=== PATIENT | male | born 1985 | race Caucasian/White ===

== ENCOUNTER 2017-06-13 06:30 | Emergency (ER) | payer SELFPAY ==
[~2017-06-13] VITALS: Ht 170.2 cm; Wt 98.1 kg
--- NOTE | 2017-06-13 06:30 | NUR ---
32 Y/O M MARIAM ACCOMPANIED BY [facility] W/C/O SOB X THIS AM. PER EMS PT WAS IN PREBOOKING PROCESS AT [facility] FOR DIU AND HE SUNDENTLY STARTED C/O SOB. PER EMS VSS ON ROUTE. MED HX HTN.
[2017-06-13 06:33] VITALS: BP 129/87
[2017-06-13] MEDS ORDERED: ALBUTEROL SULFATE/IPRATROPIU 3 ML SOL IH ONE (06:40)
[2017-06-13] MEDS ORDERED: MULTIVITAMIN-12 10 ML, THIAMINE 100 MG, MAGNESIUM SULFATE 50% 2,000 MG, FOLIC ACID 5 MG... IV ONE ×5 (06:45)
[2017-06-13] MEDS ORDERED: FOLIC ACID 5 MG/ML SYR ONE (06:54)
[2017-06-13] MEDS ORDERED: THIAMINE 200 MG/2 ML VIAL ONE (06:54)
[2017-06-13] MEDS ORDERED: MAGNESIUM SULFATE 50% 1000 MG/2 ML VIAL IV ONE (06:54)
[2017-06-13] MEDS ORDERED: MULTIVITAMIN-12 10 ML VIAL IV ONE (06:54)
[2017-06-13 07:04] LABS: HEMATOCRIT 47.6 % (36-52); MEAN CORPUSCULAR HEMOGLOBIN 29 pg (27-31); MEAN CORPUSCULAR HGB CONC 34 g/dL (33-37); MEAN CORPUSCULAR VOLUME 86 fL (80-94); PLATELET COUNT (AUTO) 240 K/uL (140-450); RED BLOOD CELL COUNT(AUTO) 5.53 MIL/uL (4.20-6.10); RED CELL DISTRIBUTION WIDTH 13.2 % (11.6-13.7); WHITE BLOOD COUNT (AUTO) 6.2 K/uL (4.8-10.8)
--- NOTE | 2017-06-13 07:19 | NUR ---
Pt report given to ZENA BEE. Transfer of care at this time.
--- NOTE | 2017-06-13 07:20 | NUR ---
OBTAINED REPORT FROM PM NURSE, PT IS AAOX4, LYING ON BED, NO S/S OF DISTRESS, DENIES PAIN, VSS.
[2017-06-13 07:21] LABS: ANION GAP 16.9 (8-16); CARBON DIOXIDE 23.9 mmol/L (21-32); CHLORIDE 110 mmol/L (98-107); CREATININE 0.7 mg/dL (0.7-1.3); GFR ARICAN-AMERICAN 167 mL/min (>90); GLUCOSE 102 mg/dL (74-106); POTASSIUM 3.8 mmol/L (3.5-5.1); SODIUM SERUM 147 mmol/L (136-145); UREA NITROGEN, BLOOD 6 mg/dL (7-18)
[2017-06-13 07:27] LABS: ACETAMINOPHEN < 0.5 ug/ml (10-30); ASPARTATE AMINOTRANSFERASE 18 U/L (15-37); SALICYLATE < 2.8 mg/dL (2.8-20.0); TOTAL BILIRUBIN 0.2 mg/dL (0.0-1.0)
[2017-06-13 07:40] LABS: PROTHROMBIN TIME 10.4 secs (10.8-13.4)
[2017-06-13 07:56] LABS: EOSINOPHILS % (MANUAL) 2 % (0-4); LYMPHOCYTES % (MANUAL) 30 % (20-46); MONOCYTES % (MANUAL) 8 % (5-12)
--- NOTE | 2017-06-13 08:20 | NUR ---
NO S/S OF DISTRESS, VSS. RUNNING IV MEDICATION AT THIS TIME.
[2017-06-13 08:51] LABS: BARBITURATE, URINE NEG. ng/ml (NEG <=200); BENZODIAZEPINE, URINE NEG. ng/mL (NEG <=200); CANNABINOID, URINE NEG. ng/mL (NEG <=50); COCAINE, URINE NEG. ng/mL (NEG <=300); OPIATE, URINE NEG. ng/mL (NEG <=2000); PHENCYCLIDINE SCREEN,URINE NEG. ng/mL (NEG <=25)
[2017-06-13 09:30] VITALS: BP 130/72
--- NOTE | 2017-06-13 09:30 | NUR ---
Patient discharged with v/s stable. Written and verbal after care instructions given and explained. Patient verbalized understanding. Ambulatory with steady gait. All questions addressed prior to discharge. Advised to follow up with PMD.
== END 2017-06-13 09:30 ==
LOC: MED 06:30
DX: F10.129 Alcohol abuse with intoxication, unspecified (principal); I10 Essential (primary) hypertension; F17.210 Nicotine dependence, cigarettes, uncomplicated; Y90.9 Presence of alcohol in blood, level not specified
CPT/HCPCS: 36415; 71045; 80053; 80305; 84484; 85025; 85610; 85730; 94640; 96365; 96366; 99285; A9153; G0480; G0482; J3411; J3475; J3490; J7030; J7620; 93005

== ENCOUNTER 2022-10-03 23:15 | Emergency (ER) | payer SELFPAY ==
[~2022-10-03] VITALS: Ht 167.6 cm; Wt 99.8 kg
--- NOTE | 2022-10-03 23:20 | NUR ---
Dr. Araya examining patient.
[2022-10-03 23:25] VITALS: BP 111/67; PULSE 90; RESP 15; TEMP 98.3; O2SAT 95
--- NOTE | 2022-10-03 23:26 | NUR ---
PT [facility] BLS. TAKEN TO BED 7
--- NOTE | 2022-10-03 23:40 | NUR ---
37 Y/O M BIBA FROM HOME WITH C/O NOSE PAIN, S/P MECHANICAL FALL +ETOH WITH SMALL LAC TO UPPER BRIDGE OF NOSE AND ABRASION TO FACE. PT APPEARS INTOXICATED. PT IS A&OX4. PMH-HTN NKA
--- NOTE | 2022-10-04 00:27 | NUR ---
CLEANED PT. WOUNDS WITH NS. DISOCVERED LAC. UNDER NOSE, NOTIFIED DR. DEL CID. CLEANED LAC. W/ IODINE.
[2022-10-04] MEDS ORDERED: LIDOCAINE MPF 1% 10 MG/ML VIAL INJ ONE (00:30)
--- NOTE | 2022-10-04 00:30 | NUR ---
PT UNABLE TO SIGN TDAAP CONSENT DUE TO INTOXICATION. DR. DEL CID NOTIFIED.
--- NOTE | 2022-10-04 02:30 | NUR ---
PT CONTINUES TO REST IN BED, APPEARS INTOXICATED AND UNABLE TO SIGN CONSENT FOR TDAAP. DR. DEL CID NOTIFIED
[2022-10-04 03:15] VITALS: O2SAT 95
--- NOTE | 2022-10-04 04:07 | NUR ---
Dr. Araya examining patient.
[2022-10-04] MEDS ORDERED: NACL 0.9% 1,000 ML IV ONE (04:15)
--- NOTE | 2022-10-04 06:36 | NUR ---
PT AWAKE AND ALERT. ABLE TO SIGN CONSENT FOR TDAAP.
--- NOTE | 2022-10-04 06:44 | NUR ---
PT AMBULATED TO RESTROOM WITHOUT ASSISTANCE
--- NOTE | 2022-10-04 07:19 | NUR ---
Pt report given to MICHELLE PAGE. Transfer of care at this time.
--- NOTE | 2022-10-04 07:20 | NUR ---
REPORT RECEIVED FROM GINGER PAGE. ASSUMED CARE AT THIS TIME
--- NOTE | 2022-10-04 07:35 | NUR ---
pt at rest w/ eyes closed. respirations even and unlabored. on lunchroom monitor.
[2022-10-04 08:04] VITALS: BP 120/74; PULSE 94; RESP 16; TEMP 98.3; O2SAT 97
--- NOTE | 2022-10-04 08:05 | NUR ---
IV removed, catheter intact and site benign. Applied folded 4x4 gauze and tape to stop bleeding.
--- NOTE | 2022-10-04 09:00 | NUR ---
Patient discharged with v/s stable. Written and verbal after care instructions FOR ALCOHOL INTOXICATION, HEADINJURY, NASAL FRACTURE AND LAC CARE given and explained. Patient verbalized understanding. Ambulatory with steady gait. All questions addressed prior to discharge. Advised to follow up with PMD. [facility] HOME PROVIDED
--- NOTE | 2022-10-04 09:07 | NUR ---
The patient's care was reviewed and supervised by ED Agency Nurse 9, RN, RN.
== END 2022-10-04 09:07 | disposition home or self-care (01) ==
LOC: MED 23:15
DX: S02.2XXA Fracture of nasal bones, initial encounter for closed fracture (principal); F10.129 Alcohol abuse with intoxication, unspecified; E86.0 Dehydration; Z79.899 Other long term (current) drug therapy; Y90.9 Presence of alcohol in blood, level not specified; W18.30XA Fall on same level, unspecified, initial encounter; Y93.89 Activity, other specified; Y92.89 Other specified places as the place of occurrence of the external cause; Y99.8 Other external cause status
CPT/HCPCS: 12013; 70450; 70486; 72125; 90471; 90715; 96360; 99285; J2001; J7030